=== PATIENT | female | born 1980 | race Caucasian/White ===

== ENCOUNTER → 2020-03-25 09:35 | Outpatient (BNVA) | payer MEDICAID, SELFPAY | PROVIDERS: PCP Internal Medicine; Visit Provider Internal Medicine Rheumatology | DX: M05.79 Rheumatoid arthritis with rheumatoid factor of multiple sites without organ or systems involvement (principal); Z79.899 Other long term (current) drug therapy; Z11.59 Encounter for screening for other viral diseases; Z11.1 Encounter for screening for respiratory tuberculosis; M79.7 Fibromyalgia; M54.31 Sciatica, right side; L43.9 Lichen planus, unspecified; F17.210 Nicotine dependence, cigarettes, uncomplicated | CPT/HCPCS: 36415; 99204 ==

== ENCOUNTER 2020-03-25 11:11 | Outpatient (CLI) | payer MEDICAID, SELFPAY ==
--- NOTE | 2020-03-25 11:14 | XR_ITS ---
WS: [id number] RIGHT HAND: 3 VIEW(S) TECHNIQUE: PA, oblique and lateral. HISTORY: joint pain COMPARISON: None available. No acute fracture or dislocation. No soft tissue or bone abnormality. No erosions or osteopenia. XR/XR hand RT min 3V* [id number] IMPRESSION: Normal RIGHT hand.
--- NOTE | 2020-03-25 11:14 | XR_ITS ---
WS: [id number] LEFT HAND: 3 VIEW(S) TECHNIQUE: PA, oblique and lateral. HISTORY: joint pain COMPARISON: None available. No acute fracture or dislocation. No soft tissue or bone abnormality. No erosions or osteopenia. XR/XR hand LT min 3V* [id number] IMPRESSION: Normal LEFT hand.
--- NOTE | 2020-03-25 11:14 | XR_ITS ---
WS: [id number] RIGHT FOOT: 3 VIEW(S) TECHNIQUE: AP, oblique and lateral. HISTORY: joint pain COMPARISON: None available. No acute fracture or dislocation. Normal tarsal/metatarsal alignment. No soft tissue abnormality or bone destruction. Small calcaneal spur. XR/XR foot RT min 3V* [id number] IMPRESSION: Normal RIGHT foot.
--- NOTE | 2020-03-25 11:14 | XR_ITS ---
WS: [id number] CHEST 2 VIEWS HISTORY: joint pain COMPARISON: None available. Lungs: Clear with no abnormality. No pleural effusion or pneumothorax. Cardiac size: Normal. Mediastinum/Aorta: Normal mediastinum. Bones: Normal. XR/XR chest 2V* [id number] IMPRESSION: Normal chest.
--- NOTE | 2020-03-25 11:14 | XR_ITS ---
WS: [id number] LEFT FOOT: 3 VIEW(S) TECHNIQUE: AP, oblique and lateral. HISTORY: joint pain COMPARISON: None available. No acute fracture or dislocation. Normal tarsal/metatarsal alignment. No soft tissue abnormality or bone destruction. Small calcaneal spur. XR/XR foot LT min 3V* [id number] IMPRESSION: Normal LEFT foot.
== END 2020-03-25 11:12 | disposition home or self-care (01) ==
LOC: RADWPI 11:13
PROVIDERS: PCP Internal Medicine; Visit Provider Internal Medicine Rheumatology
DX: M25.50 Pain in unspecified joint (principal); Z79.899 Other long term (current) drug therapy; Z11.59 Encounter for screening for other viral diseases
CPT/HCPCS: 71046; 73130; 73630; 80076; 82306; 82565; 85025; 85651; 86140; 86480; 86704; 86803; 87340

== ENCOUNTER → 2020-05-05 12:01 | Outpatient (BNVA) | payer MEDICAID, SELFPAY | PROVIDERS: PCP Internal Medicine; Visit Provider Internal Medicine Rheumatology | DX: M05.79 Rheumatoid arthritis with rheumatoid factor of multiple sites without organ or systems involvement (principal); Z79.899 Other long term (current) drug therapy; M79.7 Fibromyalgia; F17.210 Nicotine dependence, cigarettes, uncomplicated; Z79.52 Long term (current) use of systemic steroids | CPT/HCPCS: 99214 ==

== ENCOUNTER → 2022-05-25 11:07 | Outpatient (BNVA) | payer MEDICAID, SELFPAY | PROVIDERS: PCP Internal Medicine; Visit Provider Internal Medicine Rheumatology | DX: M05.79 Rheumatoid arthritis with rheumatoid factor of multiple sites without organ or systems involvement (principal); Z79.899 Other long term (current) drug therapy; M79.7 Fibromyalgia; Z71.89 Other specified counseling; Z30.09 Encounter for other general counseling and advice on contraception; K21.9 Gastro-esophageal reflux disease without esophagitis | CPT/HCPCS: 36415; 80076; 82306; 82565; 84439; 84443; 85025; 85651; 86140; 99214 ==